=== PATIENT | female | born 1945 | race Two or more races ===

== ENCOUNTER 2017-09-17 11:30 | Emergency (ER) | payer BC, OTHER ==
[~2017-09-17] VITALS: Ht 162.6 cm; Wt 67.0 kg
[2017-09-17] MEDS ORDERED: KETOROLAC 60MG/2ML VIAL IM ONE (14:15)
[2017-09-17] MEDS ORDERED: KETOROLAC 30MG/ML VIAL ONE (15:17)
[2017-09-17] MEDS ORDERED: HYDROCODONE/ACETAMINOPHEN 5/325MG TABLET PO ONE (15:45)
[2017-09-17 16:40] VITALS: BP 133/63
== END 2017-09-17 17:37 | disposition home or self-care (01) ==
LOC: ER 11:53
DX: M17.11 Unilateral primary osteoarthritis, right knee (principal); M54.2 Cervicalgia; I10 Essential (primary) hypertension; E11.9 Type 2 diabetes mellitus without complications; V43.52XA Car driver injured in collision with other type car in traffic accident, initial encounter; Y93.89 Activity, other specified; Y99.8 Other external cause status; Y92.410 Unspecified street and highway as the place of occurrence of the external cause
CPT/HCPCS: 72040; 73562; 96372; 99284; J1885; Z7610; L0172

== ENCOUNTER 2021-01-25 06:55 | Emergency (ER) | payer MEDICARE, OTHER ==
[~2021-01-25] VITALS: Ht 167.6 cm; Wt 90.0 kg
[2021-01-25] MEDS ORDERED: ACETAMINOPHEN 325MG TABLET PO STA (07:17)
[2021-01-25] MEDS ORDERED: SODIUM CHLORIDE 0.9% 1000ML BAG (SEPSIS BOLUS) IV ONE (07:30)
[2021-01-25] MEDS ORDERED: VANCOMYCIN 1 G PREMIX 200 ML IV ONE (07:30)
[2021-01-25] MEDS ORDERED: PIPERACILLIN/TAZ 3.375G PREMIX 50 ML IV ONE (07:30)
[2021-01-25 09:20] LABS: BASOPHILS % 0.3 % (0.0-2.0); EOSINOPHILS % 0.1 % (0.0-5.0); HEMATOCRIT. 25.3 % (36.0-48.0); HEMOGLOBIN. 8.2 g/dL (12.0-16.0); LYMPHOCYTES % 19.9 % (20.0-50.0); MEAN CORPUSCULAR VOLUME 93.1 fL (81.0-99.0); MEAN PLATELET VOLUME 9.2 fl (7.4-10.4); MONOCYTES % 6.6 % (2.0-8.0); NEUTROPHILS % 73.1 % (40.0-76.0); PLATELET 318 x1000/uL (130-400); RED BLOOD CELL COUNT 2.72 mill/uL (4.2-5.4); RED CELL DISTRIBUTION WIDTH 13.8 % (11.6-14.6)
[2021-01-25 09:27] LABS: CHLORIDE 103 mEq/L (98-107)
[2021-01-25 09:31] LABS: PROTHROMBIN TIME 10.8 sec (9.6-11.0)
[2021-01-25] MEDS ORDERED: POTASSIUM CHLORIDE INJ 40 MEQ in DEXT 5% WATER 250 ML IV ONE (10:00)
[2021-01-25 12:31] LABS: CLARITY URINE CLEAR (CLEAR); COLOR URINE YELLOW (YELLOW); KETONES URINE TRACE (NEGATIVE); LEUKOCYTE ESTERASE URINE TRACE (NEGATIVE); NITRITE URINE NEGATIVE (NEGATIVE); OCCULT BLOOD URINE NEGATIVE (NEGATIVE); PROTEIN URINE NEGATIVE (NEGATIVE); SPECIFIC GRAVITY URINE 1.011 (1.005-1.030); UROBILINOGEN URINE 0.2 E.U./dL (0.2-1.0)
[2021-01-25] MEDS ORDERED: DILTIAZEM HCL 5MG/ML 5ML VIAL IV NR (13:00)
[2021-01-25] MEDS ORDERED: SODIUM CHLORIDE 0.9% 1,000 ML IV SCH (13:15)
[2021-01-25 16:25] VITALS: BP 142/63
== END 2021-01-25 16:38 | disposition short-term general hospital (02) ==
LOC: ER 07:26 → CANBEDREQ 17:54
DX: A41.9 Sepsis, unspecified organism (principal); I47.1 Supraventricular tachycardia; E11.9 Type 2 diabetes mellitus without complications; I10 Essential (primary) hypertension; E87.6 Hypokalemia; D64.9 Anemia, unspecified; E66.9 Obesity, unspecified; Z20.822 Contact with and (suspected) exposure to COVID-19; Z68.32 Body mass index [BMI] 32.0-32.9, adult
CPT/HCPCS: 36415; 71045; 80053; 81003; 83036; 83605; 84145; 84484; 85025; 85610; 87040; 93005; 96365; 96366; 96368; 96375; 99291; C9803; J2543; J3370; J3480; J3490; J7030; J7040; J7060; U0003